=== PATIENT | female | born 1970 | race Caucasian/White ===

== ENCOUNTER → 2018-04-23 | Outpatient (CLI) | payer BC | END | disposition home or self-care (01) | LOC: RAD 09:18 | PROVIDERS: ATTEND Nurse Practitioner Family | DX: R74.8 Abnormal levels of other serum enzymes (principal); R10.11 Right upper quadrant pain; E03.9 Hypothyroidism, unspecified; E78.5 Hyperlipidemia, unspecified; J45.909 Unspecified asthma, uncomplicated; F32.9 Major depressive disorder, single episode, unspecified; Z87.891 Personal history of nicotine dependence | CPT/HCPCS: 78227; A9537 ==

== ENCOUNTER 2018-06-23 09:48 | Emergency (ER) | payer BC ==
[~2018-06-23] VITALS: Ht 170.2 cm; Wt 102.1 kg
[2018-06-23 10:42] LABS: BASOPHILS % (AUTO) 0.5 % (0-1); EOSINOPHILS # (AUTO) 0.1 X10'3 (0-0.9); EOSINOPHILS % (AUTO) 2.6 % (0-6); HEMATOCRIT 42.8 % (35.0-45.0); HEMOGLOBIN 14.4 g/dl (12.0-16.0); LYMPHOCYTES # (AUTO) 1.5 X10'3 (1.1-4.8); LYMPHOCYTES % (AUTO) 27.3 % (21-51); MEAN CORPUSCULAR HGB CONC 33.8 g/dL (33.0-36.5); MEAN CORPUSCULAR VOLUME 94.7 FL (78-98); MONOCYTES # (AUTO) 0.6 X10'3 (0-0.9); NEUTROPHILS # (AUTO) 3.4 X10'3 (1.8-7.7); NEUTROPHILS % (AUTO) 59.6 % (42-75); PLATELET COUNT 275 X10'3 (140-440); RED BLOOD COUNT 4.52 X10'6 (4.20-5.60); RED CELL DISTRIBUTION WIDTH 13.2 % (11.5-14.5); WHITE BLOOD COUNT 5.6 X10'3 (4.5-11.0)
[2018-06-23 10:49] LABS: PARTIAL THROMBOPLASTIN TIME 27 SECONDS (22-32)
[2018-06-23 10:51] LABS: ALANINE AMINOTRANSFERASE 129 U/L (12-78); ALBUMIN 3.7 G/DL (3.4-5.0); ALBUMIN/GLOBULIN RATIO 1.1 (1.1-1.5); ALKALINE PHOSPHATASE 93 IU/L (46-116); ANION GAP 9 (8-16); ASPARTATE AMINO TRANSFERASE 88 U/L (10-37); BILIRUBIN,TOTAL 0.4 MG/DL (0.1-1.0); BLOOD UREA NITROGEN 12 MG/DL (7-18); CALCIUM 9.4 MG/DL (8.5-10.1); CHLORIDE 101 MMOL/L (99-107); CREATININE 0.75 MG/DL (0.40-0.90); GLUCOSE 106 MG/DL (70-104); POTASSIUM 4.2 MMOL/L (3.5-5.1); SODIUM 137 MMOL/L (135-145); TOTAL PROTEIN 7.2 G/DL (6.4-8.2); eGFR 82 ML/MIN
--- NOTE | 2018-06-23 11:33 | NUR ---
PT is seen at [facility] by Andres Doss- [phone]
[2018-06-23] MEDS ORDERED: PANT-47 PO (11:50)
[2018-06-23 12:17] VITALS: BP 131/91
== END 2018-06-23 12:24 | disposition home or self-care (01) ==
LOC: ER 09:52
DX: R07.89 Other chest pain (principal); E78.00 Pure hypercholesterolemia, unspecified; Z90.710 Acquired absence of both cervix and uterus; Z87.891 Personal history of nicotine dependence
CPT/HCPCS: 36415; 71045; 80053; 84484; 85025; 85610; 85730; 93005; 99284

== ENCOUNTER 2018-12-20 12:14 | Day surgery (SDC) | payer BC ==
[2018-12-14 16:02] LABS: BASOPHILS % (AUTO) 0.5 % (0-1); EOSINOPHILS # (AUTO) 0.2 X10'3 (0-0.9); EOSINOPHILS % (AUTO) 2.6 % (0-6); LYMPHOCYTES # (AUTO) 2.4 X10'3 (1.1-4.8); LYMPHOCYTES % (AUTO) 27.6 % (21-51); MEAN CORPUSCULAR HEMOGLOBIN 31.4 PG (27.0-31.0); MEAN CORPUSCULAR HGB CONC 33.4 g/dL (33.0-36.5); MEAN CORPUSCULAR VOLUME 93.9 FL (78-98); MEAN PLATELET VOLUME 8.1 FL (7.4-10.4); MONOCYTES # (AUTO) 0.8 X10'3 (0-0.9); MONOCYTES % (AUTO) 8.6 % (2-12); NEUTROPHILS # (AUTO) 5.3 X10'3 (1.8-7.7); NEUTROPHILS % (AUTO) 60.7 % (42-75); PRE OP HEMATOCRIT 41.8 % (35.0-45.0); PRE OP PLATELET COUNT 302 X10'3 (140-440); RED BLOOD COUNT 4.45 X10'6 (4.20-5.60); RED CELL DISTRIBUTION WIDTH 12.9 % (11.5-14.5)
[2018-12-14 16:25] LABS: ALBUMIN 3.7 G/DL (3.4-5.0); ALBUMIN/GLOBULIN RATIO 1.1 (1.1-1.5); ALKALINE PHOSPHATASE 93 IU/L (46-116); BLOOD UREA NITROGEN 9 MG/DL (7-18); BUN/CREATININE RATIO 12.7 (6.6-38.0); CALCIUM 8.9 MG/DL (8.5-10.1); CHLORIDE 106 MMOL/L (99-107); CREATININE 0.71 MG/DL (0.40-0.90); PRE OP ALT 50 U/L (30-65); PRE OP ANION GAP 8 (8-16); PRE OP AST 24 U/L (10-37); PRE OP BILIRUB, TOTAL 0.3 MG/DL (0.0-1.0); PRE OP GLUCOSE 76 MG/DL (70-104); PRE OP POTASSIUM 4.1 MMOL/L (3.4-5.1); PRE OP SODIUM 141 MMOL/L (135-145); TOTAL CARBON DIOXIDE 27.1 MMOL/L (24-32); TOTAL PROTEIN 7.2 G/DL (6.4-8.2); eGFR 87 ML/MIN
[2018-12-20] VITALS (16 sets, daily range): BP systolic 113–138; BP diastolic 54–93
[~2018-12-20] VITALS: Ht 170.2 cm; Wt 97.1 kg
[2018-12-20] MEDS: HYDROmorphone/NS 1 mg/ml CADD 50 ML IV SCH ×8 (11:00→23:00)
[~2018-12-20 12:14] MED LIST: BUPR-94 PO; CADD PCA waste documentation MC SCH; LEVO125T PO; OMEP20TA5 PO
[2018-12-20] MEDS ORDERED: ceFOXitin 2 GM ADDVANTGE BAG 50 ML IV ONE (12:15)
[2018-12-20] MEDS ORDERED: famotidine 20mg tablet PO ONE (12:15)
[2018-12-20] MEDS: ringers solution, lacted 1,000 ML IV SCH ×4 (12:52→23:33)
[2018-12-20] MEDS ORDERED: ceFAZolin 1000mg inj ONE (13:01)
[2018-12-20] MEDS ORDERED: vasoPRESSIN 20 units/ml inj. ONE (13:01)
[2018-12-20] MEDS ORDERED: clindamycin phosphate 40gm vag cream ONE (13:02)
[2018-12-20] MEDS ORDERED: ringers solution, lacted 1,000 ML IV SCH (14:18)
[2018-12-20] MEDS ORDERED: sevoflurane 250ml liquid IH ONE (14:19)
[2018-12-20] MEDS ORDERED: dexamethasone sod phosphate 10mg/ml inj ONE (14:19)
[2018-12-20] MEDS ORDERED: ondansetron/PF 4mg/2ml inj IV PRN ×2 (14:20→15:35)
[2018-12-20] MEDS ORDERED: hydrALAZINE 20mg/ml inj. IV PRN (14:20)
[2018-12-20] MEDS ORDERED: morphine 4 MG/ML inj SYRINge IV PRN ×2 (14:20)
[2018-12-20] MEDS ORDERED: labetalol 20mg/4ml (5mg/ml) syringe IV PRN (14:20)
[2018-12-20] MEDS ORDERED: fentaNYL/PF 50MCG/1 ML 2ML syringe IV PRN ×2 (14:20)
[2018-12-20] MEDS ORDERED: propofol inj 20 ML IV ONE (14:32)
[2018-12-20] MEDS ORDERED: LIDOcaine 2% (20mg/ml) 5ml vial ONE (14:32)
[2018-12-20] MEDS ORDERED: ondansetron/PF 4mg/2ml inj ONE (14:32)
[2018-12-20] MEDS ORDERED: acetaminophen 1,000mg/100ml IV 100 ML IV ONE (14:39)
[2018-12-20] MEDS ORDERED: fluoroscein sod 10% (100mg/ml) 5ml vial ONE (15:21)
[2018-12-20] MEDS ORDERED: normal saline 500ml IV soln 500 ML IV PRN (15:35)
[2018-12-20] MEDS ORDERED: HYDROcodone/acetaminophen 5mg/325mg tablet PO PRN ×2 (15:35)
[2018-12-20] MEDS ORDERED: diphenhydrAMINE 50 mg/ml inj IV PRN (15:35)
[2018-12-20] MEDS ORDERED: temazepam 15mg capsule PO PRN (15:35)
[2018-12-20] MEDS ORDERED: ketorolac trometh. 30mg/ml inj. IV PRN (15:35)
[2018-12-20] MEDS ORDERED: magnesium hydroxide 30ml (MOM) UD suspension PO PRN (15:35)
--- NOTE | 2018-12-20 15:40 | NUR ---
Received from OR via MEDICAL BED, accompanied by Anesthesiologist DR. HUGGINS and report given by Anesthesiolgist. PT ARRIVED SLEEPY BUT AWAKE. VSS ON 10L O2 VIA MASK. STATES SHE IS TENDER "DOWN THERE" BUT NOT REAL PAIN AND DOES NOT WANT PAIN MEDS AT THIS TIME. STERI STRIPS CDI. FC TO GRAVITY DRAIN, BRIGHT YELLOW URINE NOTED. HAYDEN WITH GOOS CSM. 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
--- NOTE | 2018-12-20 16:39 | NUR ---
Report called to receiving nurse SUNIL RAMÍREZ. Transferred via MEDICAL BED TO ROOM 345A WITH BAG OF Belongings X1. FAMILY NOTIFIED OF MOVE. VSS ON RA. Special Issues communicated to receiving nurse.
[2018-12-20] MEDS: simethicone 80mg chew tab PO SCH (18:05)
--- NOTE | 2018-12-20 18:22 | NUR ---
Problems reprioritized. Patient report given, questions answered & plan of care reviewed with IVETTE RAMÍREZ.
--- NOTE | 2018-12-20 18:25 | NUR ---
Problems reprioritized. Patient report given, questions answered & plan of care reviewed with IVETTE RAMÍREZ.
--- NOTE | 2018-12-20 18:26 | NUR ---
Patient in room LV 345. I have received report from DARRELL Batista and had the opportunity to ask questions and assume patient care.
[2018-12-20] MEDS: docusate sod 100mg capsule PO SCH (19:09)
[2018-12-21] VITALS: BP 105/61
[2018-12-21] MEDS: HYDROmorphone/NS 1 mg/ml CADD 50 ML IV SCH ×7 (01:00→12:02)
[2018-12-21 04:00] VITALS: BP 110/62
[2018-12-21 05:20] LABS: BASOPHILS % (AUTO) 0.1 % (0-1); EOSINOPHILS % (AUTO) 0 % (0-6); HEMATOCRIT 36.4 % (35.0-45.0); HEMOGLOBIN 12.2 g/dl (12.0-16.0); LYMPHOCYTES # (AUTO) 0.8 X10'3 (1.1-4.8); LYMPHOCYTES % (AUTO) 8.2 % (21-51); MEAN CORPUSCULAR HEMOGLOBIN 31.8 PG (27.0-31.0); MEAN CORPUSCULAR HGB CONC 33.4 g/dL (33.0-36.5); MEAN PLATELET VOLUME 8.7 FL (7.4-10.4); MONOCYTES # (AUTO) 0.3 X10'3 (0-0.9); MONOCYTES % (AUTO) 3.6 % (2-12); NEUTROPHILS # (AUTO) 8.2 X10'3 (1.8-7.7); NEUTROPHILS % (AUTO) 88.1 % (42-75); PLATELET COUNT 255 X10'3 (140-440); RED BLOOD COUNT 3.83 X10'6 (4.20-5.60); RED CELL DISTRIBUTION WIDTH 12.9 % (11.5-14.5); WHITE BLOOD COUNT 9.3 X10'3 (4.5-11.0)
[2018-12-21] MEDS: ringers solution, lacted 1,000 ML IV SCH ×2 (05:37→12:58)
--- NOTE | 2018-12-21 06:04 | NUR ---
Problems reprioritized. Patient report given, questions answered & plan of care reviewed with DARRELL Browning.
--- NOTE | 2018-12-21 06:09 | NUR ---
Patient in room LV 345. I have received report from DARRELL STEELE and had the opportunity to ask questions and assume patient care.
[2018-12-21 06:47] VITALS: BP 115/64
[2018-12-21] MEDS ORDERED: levoTHYROXINE 125mcg tablet PO SCH (07:00)
[2018-12-21] MEDS: simethicone 80mg chew tab PO SCH ×2 (07:10→12:57)
[2018-12-21] MEDS: docusate sod 100mg capsule PO SCH (07:10)
[2018-12-21] MEDS ORDERED: pantoprazole 40mg Tablet.DR PO SCH (07:30)
[2018-12-21] MEDS ORDERED: buPROPion SR 150mg tablet PO SCH (08:00)
--- NOTE | 2018-12-21 10:29 | NUR ---
PATIENT ABLE TO VOID 300ML WITH POST VOID RESIDUAL OF 46ML.
[2018-12-21 10:58] VITALS: BP 115/67
--- NOTE | 2018-12-21 12:19 | NUR ---
PATIENT VOIDED 300ML WITH 87ML POST VOID RESIDUAL
--- NOTE | 2018-12-21 13:28 | NUR ---
DR LÓPEZ IN TO SEE PATIENT AND IS AWARE OF PATIENT'S POST RESIDUAL VOID AMOUNTS WHICH WERE LESS THAN 100ML.
--- NOTE | 2018-12-21 15:20 | NUR ---
Discussed with patient discharge instructions. Patient verbalizes understanding of teaching. Patient states her spouse had picked up new prescriptions from Dr. Schmitz from Pharmacy. Patient dc'd with all personal belongings via wheelchair accompanied by spouse and x1 staff.
== END 2018-12-21 15:21 | disposition home or self-care (01) ==
LOC: PAS 12:14 → SUR 3N 15:33 → UNDOADMOB 15:33 → PAS 12-21 15:21
PROVIDERS: ATTEND Specialist
DX: N81.10 Cystocele, unspecified (principal); N36.42 Intrinsic sphincter deficiency (ISD); N39.3 Stress incontinence (female) (male); F32.9 Major depressive disorder, single episode, unspecified; E06.3 Autoimmune thyroiditis; K21.9 Gastro-esophageal reflux disease without esophagitis; E66.9 Obesity, unspecified; Z68.33 Body mass index [BMI] 33.0-33.9, adult; Z79.899 Other long term (current) drug therapy; Z87.891 Personal history of nicotine dependence; Z90.710 Acquired absence of both cervix and uterus; Z72.89 Other problems related to lifestyle; Z79.01 Long term (current) use of anticoagulants; Z85.9 Personal history of malignant neoplasm, unspecified
CPT/HCPCS: 36415; 57240; 57288; 80053; 82948; 84443; 85025; 85610; 85730; 86885; 86900; 86901; C1771; J0131; J0690; J0694; J1100; J1170; J2001; J2405; J2704; J7120; A4215; A4314; A4338; A4355; A4618; A6250; A7000; G0378; J3490